=== PATIENT | female | born 1940 | race Caucasian/White ===

== ENCOUNTER 2020-01-22 21:31 | Emergency (ER) | payer OTHER, MEDICARE, BC ==
[2020-01-22 21:54] LABS: ALT (SGPT) 8 U/L (8-55); AST (SGOT) 19 U/L (5-34); Albumin 2.8 g/dL (3.4-4.8); Alkaline Phosphatase 112 U/L (40-110); Anion Gap 15 mmol/L (10-20); BUN (Urea Nitrogen) 10 mg/dL (9.8-20.1); Bilirubin, Total 0.2 mg/dL (0.2-1.2); Calc. Creatinine Clearance 0 mL/min (70-130); Calcium 7.6 mg/dL (7.8-10.44); Carbon Dioxide 22 mmol/L (23-31); Chloride 107 mmol/L (98-107); Estimated GFR-MDRD 41; Globulin 2.8 g/dL (2.4-3.5); Glucose 89 mg/dL (83-110); Potassium 3.8 mmol/L (3.5-5.1); Protein, Total 5.6 g/dL (6.0-8.3); Sodium 140 mmol/L (136-145)
[2020-01-22 21:55] LABS: CKMB 0.4 ng/mL (0-6.6)
[2020-01-22 22:01] LABS: White Blood Cell (WBC) Count 9.2 thou/uL (4.8-10.8)
[2020-01-22 22:02] LABS: #Lymphocytes 4.1 thou/uL (1.20-3.40); #Neutrophils 3.9 thou/uL (1.40-6.50); %Basophils 1.3 % (0.0-1.0); %Eosinophils 3.9 % (0.0-10.0); %Lymphocytes 44.1 % (21.0-51.0); %Monocytes 8.4 % (0.0-10.0); %Neutrophils 42.2 % (42.0-75.0); Hemoglobin 8.3 g/dL (12.0-16.0); Mean Corpuscular HGB CONC 31.5 g/dL (32.0-36.0); Mean Corpuscular Hemoglobin 28.3 pg (27.0-31.0); Mean Corpuscular Volume 90.1 fL (78.0-98.0); Mean Platelet Volume 7.5 fL (7.4-10.4); Platelet Count 518 thou/uL (130-400); RBC Distribution Width 20.2 % (11.5-14.5); Red Blood Cell (RBC) Count 2.93 mill/uL (4.20-5.40)
[2020-01-22 22:03] LABS: #Basophils 0.1 thou/uL (0.0-0.2); #Eosinphils 0.4 thou/uL (0.0-0.7); #Monocytes 0.8 thou/uL (0.11-0.59); Anisocytosis SLIGHT = 6-15 cells (100X) (0-5/hpf); Hypochromia MODERATE=16-30 cells (100X) (0-5/hpf); Platelet Morphology Comment Appears Increased; Target Cells SLIGHT = 2-5 cells (100X) (0-1/hpf)
[2020-01-22] MEDS ORDERED: Sodium Chloride 0.9% 100 ML ONE (22:25)
[2020-01-22] MEDS ORDERED: Nitroglycerin 2% Ointment 1 INCH/1 GM Packet ONE (22:25)
[2020-01-22] MEDS ORDERED: Acetaminophen 500 MG TAB ONE (22:25)
[2020-01-22] MEDS ORDERED: Cefepime 2 GM VIAL ONE (22:25)
[2020-01-22] MEDS ORDERED: Furosemide 20 MG/2 ML VIAL ONE (22:25)
[2020-01-22] MEDS ORDERED: Sodium Chloride 0.9% 250 ML 0 ML ONE (22:27)
[2020-01-22 23:55] LABS: Bilirubin Negative (Negative); Blood, Urine Negative (Negative); Clarity Clear (Clear); Glucose, Urine (Dipstick) Negative (Negative); Ketone, Urine Negative (Negative); Leukocyte Negative (Negative); Nitrite Negative (Negative); Protein, Urine (Dipstick) Negative (Neg-Trace); Urobilinogen 0.2 mg/dL (Less than 2)
--- NOTE | 2020-01-23 07:34 | CT ---
CT CHEST WITHOUT CONTRAST: Date: 01/22/2020 PROVIDED CLINICAL HISTORY: None. FINDINGS: Comparison made with the study dated 11/05/2019. The heart, pericardium, and great vessels are suboptimally evaluated in the absence of IV contrast ma terial, but demonstrate a stable unenhanced CT appearance. Persistent dilatation of the main pulmonar y artery segment and vascular calcification. Evaluation for thoracic lymph node enlargement is limited in the absence of IV contrast, without oral s evidence for such. There are patchy foci of primarily peripheral ground-glass opacity with associated interstitial thick ening involving the lung apices, similar to prior. The lungs appear otherwise clear. There is no pleu ral fluid or pneumothorax apparent. The airway appears patent and of normal caliber. The visualized portions of the upper abdomen demonstrate no significant abnormality. The osseous structures demonstrate no concerning lytic or blastic lesions. Vertebroplasty changes and compression deformity involving lower thoracic vertebral body redemonstrated. IMPRESSION: 1. Patchy areas of ground-glass opacity and interstitial thickening involving the lung apices, appea ring similar to prior. This can be seen in the setting of COVID pneumonia. Other etiologies can have a similar appearance. 2. Persistent dilatation of the main pulmonary artery segment, suggesting elevated pulmonary arteria l pressures. POS: ADOLFO
[2020-01-24 13:35] LABS: SARS-CoV-2 MS2 Positive; SARS-CoV-2 N Gene Negative; SARS-CoV-2 S Gene Negative; SARS-CoV-2 by NAA Not Detected (NotDetected); SARS-CoV-2 orf1ab Negative
== END 2020-01-22 23:19 | disposition short-term general hospital (02) ==
LOC: MADERS 21:31
DX: A41.9 Sepsis, unspecified organism (principal); I11.0 Hypertensive heart disease with heart failure; I50.21 Acute systolic (congestive) heart failure; R79.89 Other specified abnormal findings of blood chemistry; E11.9 Type 2 diabetes mellitus without complications; E78.2 Mixed hyperlipidemia; E78.00 Pure hypercholesterolemia, unspecified; K21.9 Gastro-esophageal reflux disease without esophagitis; Z86.718 Personal history of other venous thrombosis and embolism; Z79.82 Long term (current) use of aspirin; Z79.84 Long term (current) use of oral hypoglycemic drugs; Z79.899 Other long term (current) drug therapy
CPT/HCPCS: 36415; 71250; 80053; 81003; 82553; 83605; 83880; 84484; 85025; 87040; 87086; 87149; 87635; 93005; 96374; 96375; J0692; J1940; J3370; J3490; J7050; U0003